=== PATIENT | male | born 1965 | race Caucasian/White ===

== ENCOUNTER 2019-04-25 10:43 | Emergency (ER) | payer MEDICAID ==
[2019-04-25] MEDS ORDERED: KETOROLAC TROMETHAMINE 30 MG VIAL ONE (12:45)
[2019-04-25] MEDS ORDERED: HYDROcodone/ACETAMIN 5-325 MG TAB (NORCO/ VICODIN) ONE (12:45)
[2019-04-25] MEDS ORDERED: CYCLOBENZAPRINE HCL 10 MG TABLET (FLEXERIL) ONE (12:45)
== END 2019-04-25 13:41 | disposition home or self-care (01) ==
LOC: SED 10:43
DX: S16.1XXA Strain of muscle, fascia and tendon at neck level, initial encounter (principal); V89.2XXA Person injured in unspecified motor-vehicle accident, traffic, initial encounter; Y93.89 Activity, other specified; Y92.89 Other specified places as the place of occurrence of the external cause; Y99.8 Other external cause status
CPT/HCPCS: 72050; 96374; 99283; J1885